=== PATIENT | male | born 1955 | race Caucasian/White ===

== ENCOUNTER 2018-08-04 10:03 | Inpatient (IN) | payer OTHER ==
[~2018-08-04] VITALS: Ht 190.5 cm; Wt 79.2 kg
--- NOTE | 2018-08-04 10:37 | NUR ---
THIS IS A 62 YO MALE WHO PRESENTS TO THE ER C/O N/V AFTER EATING OVER THE LAST THREE DAYS. PT REPORTS HE HAS REALLY BAD "HEARTBURN" AND C/O EPIGASTRIC PAIN. PT NONTENDER TO PALPATION, BUT HAS BLOATING. ABD STILL SOFT. PT DENIES DIARRHEA OR BLACK, TARRY OR BLOODY STOOL. PT REPORTS LAST BM WAS YESTERDAY AND A SMALL ONE THIS AM. PT REPORTS HE IS PASSING GAS. PT AO X 4. SKIN PWD. RESP EVEN AND EQUAL. ERMD SAHM AT BEDSIDE. FOR EVAL. PT ON CONT BP AND O2 MONITORS. CALL LIGHT WITHIN REACH. WILL CONT TO MONITOR.
[2018-08-04] MEDS ORDERED: SODIUM CHLORIDE 0.9% 1,000 ML IV ONE ×2 (10:39→13:25)
--- NOTE | 2018-08-04 10:49 | NUR ---
PT TO RADIOLOGY [facility].
[2018-08-04] MEDS ORDERED: ONDANSETRON 2MG/ML, 2ML IVPush ONE (11:00)
[2018-08-04] MEDS ORDERED: SODIUM CHLORIDE FLUSH 10ML SYR IVF ONE (11:00)
[2018-08-04] MEDS ORDERED: SODIUM CHLORIDE 0.9% 1,000ML IVBOLUS ONE (11:00)
[2018-08-04] MEDS ORDERED: ONDANSETRON 2MG/ML, 2ML ONE (11:12)
[2018-08-04] MEDS ORDERED: HYDROmorphone 1 MG/ML, 1ML ONE ×2 (11:13→13:38)
[2018-08-04] MEDS: HYDROmorphone 2 MG/ML, 1ML IVPush PRN ×2 (11:15→16:13)
[2018-08-04 11:19] LABS: BASOPHILS # (AUTO) 0.04 x10^3/uL (0-0.1); BASOPHILS % (AUTO) 0 % (0-1); EOSINOPHILS # (AUTO) 0.05 x10^3/uL (0-0.4); EOSINOPHILS % (AUTO) 0 % (1-7); LYMPHOCYTES # (AUTO) 2.07 x10^3/uL (1-3.4); LYMPHOCYTES % (AUTO) 17 % (22-44); MD NO; MEAN CORPUSCULAR HEMOGLOBIN 31.8 pg (27.5-34.5); MEAN CORPUSCULAR HGB CONC 34.4 g/dL (33.2-36.2); MEAN CORPUSCULAR VOLUME 92.4 fL (81-97); MEAN PLATELET VOLUME 7.6 fL (7.4-10.4); MONOCYTES # (AUTO) 0.79 x10^3/uL (0.2-0.8); MONOCYTES % (AUTO) 6 % (2-9); NEUTROPHILS # (AUTO) 9.29 x10^3/uL (1.8-6.8); NEUTROPHILS % (AUTO) 76 % (42-75); PLATELET COUNT 183 x10^3/uL (130-400); RED BLOOD COUNT 5.31 x10^6/uL (4.38-5.82); RED CELL DISTRIBUTION WIDTH 12.6 % (9.4-14.8)
--- NOTE | 2018-08-04 11:19 | NUR ---
PT RETURN TO ROOM, IV STARTED, LABS DRAWN, NS INFUSING ORDERED. PT MEDICATED FOR 6-8/10 PAIN AND NAUSEA ORDERED. PT WITH PULSE OX AND AUTO BP IN PLACE. PT PROVIDED WITH WARM BLANKET AN PILLOW. PT UPDATED ON POC. NO OTHER NEEDS AT THIS TIME.
[2018-08-04 11:28] LABS: ALANINE AMINOTRANSFERASE 30 U/L (12-78); ALBUMIN 4.2 g/dL (3.4-5.0); ANION GAP 6 mmol/L (5-15); CALCIUM 9.4 mg/dL (8.5-10.1); CHLORIDE 106 mmol/L (98-107)
--- NOTE | 2018-08-04 11:29 | NUR ---
REPORT TO JULISSA COREY
[2018-08-04 11:30] LABS: ALKALINE PHOSPHATASE 64 U/L (45-117); BILIRUBIN,TOTAL 0.6 mg/dL (0.2-1.0); CREATININE 1.09 mg/dL (0.7-1.3); TOTAL PROTEIN 8.2 g/dL (6.4-8.2)
--- NOTE | 2018-08-04 12:11 | NUR ---
PT TOLERATED NG TUBE INSERTION WELL. 800 CC OF PINKISH CLEAR FLUID NOTED. PT EDUCATED THAT HE WILL BE NPO AT THIS TIME. PT VERBALIZES UNDERSTANDING. PT REPORTS SOME RELIEF OF ABD DISTENTION AND PAIN. PT AO X 4. SKIN PWD. RESP EVEN AND EQAUL. PT ON CONT BP, CARDIAC AND O2 MONITORS. CALL LIGHT WITHIN REACH. WILL COTN TO MONITOR PT.
--- NOTE | 2018-08-04 12:30 | NUR ---
PT TO IMAGING AT THIS TIME.
[2018-08-04] MEDS ORDERED: OMNIPAQUE 350 MG/ML, 100ML BOTTLE ONE (12:40)
[2018-08-04] MEDS ORDERED: SODIUM CHLORIDE FLUSH 10ML SYR IVF PRN (13:30)
--- NOTE | 2018-08-04 13:41 | NUR ---
PT C/O CONT 12/30 EPIGASTRIC ABDOMINAL PAIN. PT REMEDICATED ORDERED. PT AO X 4. SKIN PWD. RESP EVEN AND EQUAL. PT TOLERATING NG TUBE WELL. 1400CC WATERY OUTPUT NOTED. PT ON CONT BP, CARDIAC AND O2 MONITORS. CALL LIGHT WITHIN REACH. WILL CONT TO MONITOR PT.
--- NOTE | 2018-08-04 14:25 | NUR ---
REPORT TO MADHAV AIKEN ON MED/SURG. PT CURRENTLY RESTING ON JACLYN. NAD NOTED. SKIN PWD. RESP EVEN AND EQAUL. WILL CONT TO MONITOR PT.
[2018-08-04] MEDS ORDERED: ONDANSETRON 2MG/ML, 2ML IVPush PRN (15:00)
[2018-08-04] MEDS ORDERED: ENALAPRILAT 1.25 MG/ML, 2ML IVPush PRN (15:00)
[2018-08-04] MEDS ORDERED: DOCUSATE 100 MG CAPSULE PO PRN (15:00)
[2018-08-04] MEDS ORDERED: ONDANSETRON ODT 4 MG PO PRN (15:00)
[2018-08-04] MEDS ORDERED: METOCLOPRAMIDE 5 MG/ML, 2ML IVPush PRN (15:00)
[2018-08-04] MEDS ORDERED: LABETALOL 5MG/ML, 20ML IVPush PRN (15:00)
[2018-08-04] MEDS ORDERED: BISACODYL 10 MG SUPP PR PRN (15:00)
[2018-08-04] MEDS ORDERED: ACETAMINOPHEN 325 MG TABLET PO PRN (15:00)
[2018-08-04] MEDS ORDERED: POLYETHYLENE GLYCOL 17 GM PACKET PO PRN (15:00)
[2018-08-04 15:07] VITALS: BP 114/74
[2018-08-04] MEDS: SODIUM CHLORIDE 0.9% 1,000 ML IV SCH ×2 (15:23→22:44)
[2018-08-04] MEDS ORDERED: EFAV1TAB PO (15:40)
[2018-08-04] MEDS ORDERED: TRAZ-137 PO (15:40)
[2018-08-04] MEDS: morphine SULFATE 10 MG/ML, 1ML IVPush PRN ×3 (16:21→22:44)
[2018-08-04] MEDS: EFAVIRENZ/EMTRICITAB/TENOFOVIR 600MG-200MG-300MG TABLET PO SCH (17:50)
[2018-08-04] MEDS: TRAZODONE 50MG TABLET PO PRN (19:51)
[2018-08-04 19:55] VITALS: BP 106/64
[2018-08-05] MEDS: morphine SULFATE 10 MG/ML, 1ML IVPush PRN ×7 (01:46→22:54)
[2018-08-05 01:47] VITALS: BP 126/75
[2018-08-05 05:29] LABS: CHLORIDE 109 mmol/L (98-107)
[2018-08-05 05:30] LABS: BASOPHILS # (AUTO) 0.03 x10^3/uL (0-0.1); BASOPHILS % (AUTO) 1 % (0-1); EOSINOPHILS % (AUTO) 1 % (1-7); LYMPHOCYTES # (AUTO) 2.73 x10^3/uL (1-3.4); LYMPHOCYTES % (AUTO) 37 % (22-44); MD NO; MEAN CORPUSCULAR HEMOGLOBIN 31.7 pg (27.5-34.5); MEAN CORPUSCULAR HGB CONC 34.2 g/dL (33.2-36.2); MEAN CORPUSCULAR VOLUME 92.7 fL (81-97); MEAN PLATELET VOLUME 7.6 fL (7.4-10.4); MONOCYTES # (AUTO) 0.54 x10^3/uL (0.2-0.8); MONOCYTES % (AUTO) 7 % (2-9); NEUTROPHILS # (AUTO) 4.06 x10^3/uL (1.8-6.8); NEUTROPHILS % (AUTO) 54 % (42-75); PLATELET COUNT 140 x10^3/uL (130-400); RED BLOOD COUNT 4.53 x10^6/uL (4.38-5.82); RED CELL DISTRIBUTION WIDTH 12.5 % (9.4-14.8)
[2018-08-05 05:46] LABS: ANION GAP 6 mmol/L (5-15); CALCIUM 8.3 mg/dL (8.5-10.1); CREATININE 1.05 mg/dL (0.7-1.3)
[2018-08-05 06:58] VITALS: BP 116/72
[2018-08-05] MEDS: SODIUM CHLORIDE 0.9% 1,000 ML IV SCH ×2 (06:58→17:12)
[2018-08-05] MEDS ORDERED: PANTOPRAZOLE 40 MG IV IVPush SCH (07:30)
[2018-08-05] MEDS ORDERED: FENTANYL PF 100 MCG/2ML ONE (10:27)
[2018-08-05] MEDS ORDERED: MIDAZOLAM 1 MG/ML, 2ML ONE (10:27)
[2018-08-05] MEDS ORDERED: HYDROmorphone 2 MG/ML, 1ML IVPush PRN (10:30)
[2018-08-05] MEDS ORDERED: OXYcodone 5 MG/5 ML ORAL.SOL UDC PO PRN (10:30)
[2018-08-05] MEDS ORDERED: LABETALOL 5MG/ML, 20ML IV PRN (10:30)
[2018-08-05] MEDS ORDERED: MEPERIDINE/PF 25MG/0.5ML IVPush PRN (10:30)
[2018-08-05] MEDS ORDERED: hydrALAzine 20 MG/ML, 1ML IV PRN (10:30)
[2018-08-05] MEDS ORDERED: PROMETHAZINE 25 MG/ML, 1ML IV PRN (10:30)
[2018-08-05] MEDS ORDERED: FENTANYL PF 100 MCG/2ML IV PRN (10:30)
[2018-08-05] MEDS ORDERED: ONDANSETRON 2MG/ML, 2ML IV PRN (10:30)
[2018-08-05 12:16] VITALS: BP 115/75
[2018-08-05] MEDS: EFAVIRENZ/EMTRICITAB/TENOFOVIR 600MG-200MG-300MG TABLET PO SCH (17:11)
[2018-08-05 19:25] VITALS: BP 121/72
[2018-08-05] MEDS: PANTOPRAZOLE 40 MG IV IVPush SCH (20:58)
[2018-08-05] MEDS: TRAZODONE 50MG TABLET PO PRN (22:53)
[2018-08-06] MEDS: SODIUM CHLORIDE 0.9% 1,000 ML IV SCH ×4 (00:34→22:34)
[2018-08-06 00:35] VITALS: BP 120/70
[2018-08-06] MEDS: morphine SULFATE 10 MG/ML, 1ML IVPush PRN ×3 (01:59→07:58)
[2018-08-06 05:59] LABS: BASOPHILS # (AUTO) 0.02 x10^3/uL (0-0.1); BASOPHILS % (AUTO) 0 % (0-1); EOSINOPHILS # (AUTO) 0.07 x10^3/uL (0-0.4); EOSINOPHILS % (AUTO) 1 % (1-7); LYMPHOCYTES # (AUTO) 2.32 x10^3/uL (1-3.4); LYMPHOCYTES % (AUTO) 26 % (22-44); MD NO; MEAN CORPUSCULAR HEMOGLOBIN 31.8 pg (27.5-34.5); MEAN CORPUSCULAR HGB CONC 34.6 g/dL (33.2-36.2); MEAN CORPUSCULAR VOLUME 92.1 fL (81-97); MEAN PLATELET VOLUME 7.9 fL (7.4-10.4); MONOCYTES % (AUTO) 8 % (2-9); NEUTROPHILS # (AUTO) 5.92 x10^3/uL (1.8-6.8); NEUTROPHILS % (AUTO) 66 % (42-75); PLATELET COUNT 137 x10^3/uL (130-400); RED BLOOD COUNT 4.52 x10^6/uL (4.38-5.82); RED CELL DISTRIBUTION WIDTH 12.3 % (9.4-14.8)
[2018-08-06 06:00] LABS: ALBUMIN 3.5 g/dL (3.4-5.0); ANION GAP 7 mmol/L (5-15); CALCIUM 8.7 mg/dL (8.5-10.1); CHLORIDE 109 mmol/L (98-107)
[2018-08-06 06:04] LABS: ALANINE AMINOTRANSFERASE 22 U/L (12-78); ALKALINE PHOSPHATASE 52 U/L (45-117); BILIRUBIN,TOTAL 0.6 mg/dL (0.2-1.0); CREATININE 0.97 mg/dL (0.7-1.3); TOTAL PROTEIN 7.1 g/dL (6.4-8.2)
[2018-08-06 06:59] VITALS: BP 124/76
[2018-08-06] MEDS ORDERED: HYDROmorphone 2 MG/ML, 1ML ONE ×5 (09:16→21:05)
[2018-08-06] MEDS: EFAVIRENZ/EMTRICITAB/TENOFOVIR 600MG-200MG-300MG TABLET PO SCH (09:24)
[2018-08-06] MEDS: PANTOPRAZOLE 40 MG IV IVPush SCH ×2 (10:16→21:34)
[2018-08-06 12:21] VITALS: BP 127/79
[2018-08-06] MEDS: HYDROmorphone 1 MG/ML, 1ML IV PRN ×4 (12:23→21:37)
[2018-08-06 21:30] VITALS: BP 150/77
[2018-08-06] MEDS: TRAZODONE 50MG TABLET PO PRN (21:38)
[2018-08-07] MEDS ORDERED: HYDROmorphone 2 MG/ML, 1ML ONE ×8 (00:53→23:19)
[2018-08-07] MEDS: HYDROmorphone 1 MG/ML, 1ML IV PRN ×8 (00:57→23:34)
[2018-08-07 01:10] VITALS: BP 133/72
[2018-08-07] MEDS: SODIUM CHLORIDE 0.9% 1,000 ML IV SCH ×3 (06:20→22:53)
[2018-08-07 06:53] VITALS: BP 116/66
[2018-08-07] MEDS ORDERED: OXYcodone ORAL.CONC 20 MG/ML PO PRN (08:30)
[2018-08-07] MEDS: PANTOPRAZOLE 40 MG IV IVPush SCH ×2 (09:13→20:34)
[2018-08-07 12:19] VITALS: BP 116/63
[2018-08-07 20:20] VITALS: BP 135/81
[2018-08-07] MEDS: EFAVIRENZ/EMTRICITAB/TENOFOVIR 600MG-200MG-300MG TABLET PO SCH (20:34)
[2018-08-07] MEDS: TRAZODONE 50MG TABLET PO PRN (23:31)
[2018-08-08 02:10] VITALS: BP 113/74
[2018-08-08] MEDS ORDERED: HYDROmorphone 2 MG/ML, 1ML ONE ×4 (02:28→12:50)
[2018-08-08] MEDS: HYDROmorphone 1 MG/ML, 1ML IV PRN ×4 (02:34→12:54)
[2018-08-08] MEDS: SODIUM CHLORIDE 0.9% 1,000 ML IV SCH ×2 (06:23→16:56)
[2018-08-08 06:47] VITALS: BP 129/75
[2018-08-08 08:21] LABS: ALBUMIN 3.5 g/dL (3.4-5.0); ANION GAP 6 mmol/L (5-15); CALCIUM 8.6 mg/dL (8.5-10.1); CHLORIDE 110 mmol/L (98-107); CREATININE 0.84 mg/dL (0.7-1.3)
[2018-08-08] MEDS: PANTOPRAZOLE 40 MG IV IVPush SCH ×2 (09:29→20:58)
[2018-08-08] MEDS: EFAVIRENZ/EMTRICITAB/TENOFOVIR 600MG-200MG-300MG TABLET PO SCH ×2 (09:29→20:58)
[2018-08-08] MEDS ORDERED: MIDAZOLAM 1 MG/ML, 5ML ONE ×2 (10:07)
[2018-08-08] MEDS ORDERED: FENTANYL PF 100 MCG/2ML ONE (10:07)
[2018-08-08 11:29] VITALS: BP 123/76
[2018-08-08 12:15] VITALS: BP 135/77
[2018-08-08] MEDS: HYDROmorphone 2 MG/ML, 1ML IV PRN ×3 (15:55→21:54)
[2018-08-08 18:33] VITALS: BP 130/81
[2018-08-09] MEDS: SODIUM CHLORIDE 0.9% 1,000 ML IV SCH ×2 (00:53→09:06)
[2018-08-09] MEDS: HYDROmorphone 2 MG/ML, 1ML IV PRN ×6 (00:54→22:34)
[2018-08-09] MEDS: TRAZODONE 50MG TABLET PO PRN ×2 (00:59→22:35)
[2018-08-09 01:35] VITALS: BP 113/71
[2018-08-09 06:56] VITALS: BP 120/73
[2018-08-09] MEDS: PANTOPRAZOLE 40 MG IV IVPush SCH (09:06)
[2018-08-09 12:58] VITALS: BP 137/78
[2018-08-09] MEDS: OMEPRAZOLE 20 MG CAPSULE.DR PO SCH (16:21)
[2018-08-09] MEDS: EFAVIRENZ/EMTRICITAB/TENOFOVIR 600MG-200MG-300MG TABLET PO SCH (21:00)
[2018-08-10 02:50] VITALS: BP 123/80
[2018-08-10] MEDS: HYDROmorphone 2 MG/ML, 1ML IV PRN (04:31)
[2018-08-10 04:36] VITALS: BP 123/80
[2018-08-10] MEDS: OMEPRAZOLE 20 MG CAPSULE.DR PO SCH (05:06)
[2018-08-10 06:50] VITALS: BP 149/82
[2018-08-10] MEDS ORDERED: ACET325T14 PO (12:11)
[2018-08-10] MEDS ORDERED: GABA100C PO (12:11)
[2018-08-10] MEDS ORDERED: OMEP-110 PO (12:11)
[2018-08-10 12:24] VITALS: BP 122/81
== END 2018-08-10 14:26 | disposition home or self-care (01) | DRG 381 ==
LOC: ED 11:22 → EDIP 13:25 → 3NE 14:56 → DCLOUNGE 08-10 14:15
PROVIDERS: ADMIT Hospitalist; ATTEND Hospitalist
PROC: 0D9670Z Drainage of Stomach with Drainage Device, Via Natural or Artificial Opening (ICD-10-PCS; 2018-08-04)
PROC: 0DP6XUZ Removal of Feeding Device from Stomach, External Approach (ICD-10-PCS; 2018-08-08)
PROC: 0DJ08ZZ Inspection of Upper Intestinal Tract, Via Natural or Artificial Opening Endoscopic (ICD-10-PCS; 2018-08-08)
PROC: 0D758ZZ Dilation of Esophagus, Via Natural or Artificial Opening Endoscopic (ICD-10-PCS; principal; 2018-08-08 10:28)
DX: K31.1 Adult hypertrophic pyloric stenosis (principal); K56.600 Partial intestinal obstruction, unspecified as to cause; K56.7 Ileus, unspecified; K26.9 Duodenal ulcer, unspecified as acute or chronic, without hemorrhage or perforation; K21.0 Gastro-esophageal reflux disease with esophagitis; M19.90 Unspecified osteoarthritis, unspecified site; T39.395A Adverse effect of other nonsteroidal anti-inflammatory drugs [NSAID], initial encounter; D72.829 Elevated white blood cell count, unspecified; I10 Essential (primary) hypertension; Z80.0 Family history of malignant neoplasm of digestive organs; Z80.3 Family history of malignant neoplasm of breast; Z80.8 Family history of malignant neoplasm of other organs or systems
CPT/HCPCS: 36415; 74022; 74177; 80048; 80053; 82040; 83605; 83690; 83735; 84100; 85025; 86677; 93005; 99152; 99153; 99285; G0378; J1170; J2250; J2405; J3010; Q9967; C1725; C9113; J2270; J7030